=== PATIENT | male | born 1995 | race Two or more races ===

== ENCOUNTER 2024-08-07 09:01 | Outpatient (REF) | payer MEDICARE, MEDICAID, SELFPAY ==
[2024-08-07 10:15] LABS: Estimated Average Glucose 128 mg/dL; Hemoglobin A1c % 6.1 % (<6.0); Total Hemoglobin (HGBA1C) 3448.5369 umol/L
[2024-08-07 10:56] LABS: Alanine Aminotransferase 59 U/L (0-40); Albumin Level 4.2 g/dL (3.5-5.0); Alkaline Phosphatase 105 U/L (39-117); Anion Gap 13 (12-20); Aspartate Amino Transferase 36 U/L (5-37); Bilirubin Total 0.3 mg/dL (0.0-1.0); Blood Urea Nitrogen 11 mg/dL (9-16); Calcium 9.9 mg/dL (8.4-10.2); Carbon Dioxide 28 mmol/L (22-29); Chloride 101 mmol/L (96-108); Cholesterol 128 mg/dL (<200); Estimated Glomerular Filt Rate > 60; Glucose Random 110 mg/dL (60-115); HDL Cholesterol 38 mg/dL (>40); LDL Cholesterol Calculated 64 mg/dL (<100); Sodium 138 mmol/L (135-145); Total Protein 8.5 g/dL (6.5-8.0); Triglycerides 134 mg/dL (<150)
[2024-08-07 10:59] LABS: Thyroid Stimulating Hormone 2.01 uIU/mL (0.32-4.0)
== END 2024-08-07 09:02 | disposition home or self-care (01) ==
LOC: HO.LAB 09:01
PROVIDERS: PCP Internal Medicine; Visit Provider Internal Medicine
DX: E66.01 Morbid (severe) obesity due to excess calories (principal); F32.9 Major depressive disorder, single episode, unspecified; F41.0 Panic disorder [episodic paroxysmal anxiety]; F79 Unspecified intellectual disabilities; Z13.1 Encounter for screening for diabetes mellitus
CPT/HCPCS: 36415; 80053; 80061; 83036; 84443

== ENCOUNTER 2024-08-10 00:46 | Emergency (ER) | payer MEDICARE, MEDICAID, SELFPAY ==
[2024-08-10 00:49] VITALS: BP 156/93; PULSE 104; RESP 18; TEMP 36.5; O2SAT 95; BMI 57.6
[2024-08-10 01:17] VITALS: BP 130/83; PULSE 95; RESP 18; TEMP 36.7; O2SAT 98
--- NOTE | 2024-08-10 01:26 | ED.GENADULT ---
HPI - General Adult General Chief complaint: Animal Bite Stated complaint: Animal Bite Time Seen by Provider: 08/10/24 01:17 Source: patient and family Limitations: other (cognitive impairment) History of Present Illness ED Provider: Patricia Galarza PA-C HPI narrative: 29-year-old male with a history of cognitive impairment, presents to the ED after spider bite to left heel. Patient denies redness, swelling, itchiness or pain. Related Data Allergies Allergy/AdvReac Type Severity Reaction Status Date / Time No Known Allergies Allergy Verified 08/10/24 00:52 Review of Systems Review of Systems: No all other systems are reviewed and are negative Constitutional: Constitutional: Denies fatigue and Denies fever(s) Integumentary/Breasts: Skin/Breast: Denies erythema, Denies rash, Denies skin swelling, Denies sores and Denies wounds Endocrine: Endocrine: Denies fatigue PMFSH Past Medical History Attestation statement: The following information was validated with the patient. Social History Social History Smoked in Last 30 Days: No Use of substances other than those prescribed or required for medical reasons: No Advance Directives: No Advance Directives Information Provided: Yes Do you have a plan to hurt others: No Plan Physical Exam ED Vital Signs: Vital Signs - 24 hr 08/10/24 00:49 08/10/24 01:17 08/10/24 01:56 Temperature 97.7 F 98.0 F 98.0 F Pulse Rate 104 H 95 95 Respiratory Rate 18 18 18 Blood Pressure 156/93 H 130/83 130/83 Pulse Oximetry 95 98 98 Oxygen Delivery Method Room Air Room Air Room Air BMI result Body Mass Index 57.6 Const Other: Alert Orientation/consciousness: oriented to person Resp Effort & Inspection: normal respiratory effort Cardio Other: Normal peripheral perfusion Skin Other: Warm dry no rash, there was no puncture wound, I do not see a marc on the foot there was no redness Neuro General: oriented to person, gait normal, no focal motor deficits and CN's II-XI intact bilaterally Psych Other: Cooperative, child like Medical Decision Making Medical Decision Making MDM Narrative: 29-year-old male with a history of cognitive impairment, presents to the ED after spider bite to left heel. Patient denies redness, swelling, itchiness or pain. Problem: Cognitive impairment History: Per patient's mom I have considered the following differential diagnoses: Insect bite, cellulitis, purulent cellulitis, urticaria, contact dermatitis Plan: There is no evidence that the patient was bitten by any insect. His mom states he needed reassurance that he was okay, hence his emergency room visit. Discharge Plan Discharge Clinical Impression: Insect bite Patient Disposition: Home, Self-Care Additional Instructions: There is nothing to do for your exposure to the spider. If the area becomes itchy you can apply [id number] hydrocortisone cream. Otherwise follow up with primary care as needed. Interventions: ED Discharge Assessment Last Done: 08/10/24 01:56 Discharge Date/Time: 08/10/24 02:00 Print Language: Pashto
[2024-08-10 01:56] VITALS: BP 130/83; PULSE 95; RESP 18; TEMP 36.7; O2SAT 98
== END 2024-08-10 02:00 | disposition home or self-care (01) ==
PROVIDERS: Emergency Provider Emergency Medicine; PCP Internal Medicine
DX: S90.862A Insect bite (nonvenomous), left foot, initial encounter (principal); W57.XXXA Bitten or stung by nonvenomous insect and other nonvenomous arthropods, initial encounter; Y93.9 Activity, unspecified; Y92.9 Unspecified place or not applicable; Y99.9 Unspecified external cause status
CPT/HCPCS: 99283; 99284